=== PATIENT | male | born 1960 | race African-American/Black ===

== ENCOUNTER 2018-01-20 04:01 | Emergency (ER) | payer MEDICAID ==
[~2018-01-20] VITALS: Ht 177.8 cm; Wt 85.0 kg
[2018-01-20] MEDS ORDERED: KETOROLAC 30MG/ML VIAL IM STA (06:32)
[2018-01-20 07:49] VITALS: BP 151/92
== END 2018-01-20 07:50 | disposition home or self-care (01) ==
LOC: ER 04:01
DX: R51 Headache (principal); H57.11 Ocular pain, right eye; F17.200 Nicotine dependence, unspecified, uncomplicated
CPT/HCPCS: 96372; 99283; J1885; Z7610

== ENCOUNTER 2018-09-25 11:20 | Emergency (ER) | payer MEDICAID ==
[~2018-09-25] VITALS: Ht 177.8 cm; Wt 85.0 kg
[2018-09-25] MEDS ORDERED: KETOROLAC 60MG/2ML VIAL IM ONE (13:15)
[2018-09-25 13:35] VITALS: BP 168/89
== END 2018-09-25 13:49 | disposition home or self-care (01) ==
LOC: ER 11:20
DX: S76.912A Strain of unspecified muscles, fascia and tendons at thigh level, left thigh, initial encounter (principal); F17.210 Nicotine dependence, cigarettes, uncomplicated; X58.XXXA Exposure to other specified factors, initial encounter; Y93.B9 Activity, other involving muscle strengthening exercises; Y92.89 Other specified places as the place of occurrence of the external cause
CPT/HCPCS: 96372; 99283; J1885